=== PATIENT | female | born 1990 | race Hispanic/Latino ===

== ENCOUNTER 2018-07-05 18:55 | Emergency (ER) | payer BC, OTHER ==
[2018-07-05 19:39] VITALS: BMI 38.0
[2018-07-05 20:03] LABS: BASO % 0.6 % (0.0-2.0); EOS # 0.1 K/uL (0.0-0.7); EOS % 1.3 % (0.0-4.0); HEMOGLOBIN 11.4 g/dL (12.0-16.0); LYMPH # 1.9 K/uL (1.0-4.3); LYMPH % 22.3 % (20.0-40.0); MEAN CELL VOLUME 84.1 fl (81.0-99.0); MEAN CORPUSCULAR HEMOGLOBIN 28.2 pg (27.0-31.0); MEAN CORPUSCULAR HGB CONC 33.5 g/dL (33.0-37.0); MEAN PLATELET VOLUME 9.4 fl (7.2-11.7); MONO # 0.5 K/uL (0.0-0.8); MONO % 5.9 % (0.0-10.0); NEUT # 5.8 K/uL (1.8-7.0); NEUT % 69.9 % (50.0-75.0); RBC 4.03 Mil/uL (3.80-5.20); RED CELL DISTRIBUTION WIDTH 13.4 % (11.5-14.5); WHITE BLOOD COUNT 8.3 K/uL (4.8-10.8)
[2018-07-05 20:15] LABS: ALB/GLOB RATIO 0.9 (1.0-2.1); ALT/SGPT 18 U/L (9-52); AST/SGOT 28 U/L (14-36); BLOOD UREA NITROGEN 15 mg/dl (7-17); CALCIUM 9.2 mg/dL (8.4-10.2); GFR NON-AFRICAN AMERICAN > 60; URIC ACID 6.4 mg/Dl (2.2-7.5)
[2018-07-05 20:25] LABS: SQUAMOUS EPITHIAL 3 /hpf (0-5); URINE BACTERIA RARE (<OCC); URINE BILIRUBIN NEGATIVE (NEGATIVE); URINE BLOOD NEGATIVE (NEGATIVE); URINE CLARITY CLEAR (Clear); URINE COLOR STRAW (YELLOW); URINE GLUCOSE (UA) NEG (NEGATIVE); URINE LEUKOCYTE ESTERASE NEG Leu/uL (Negative); URINE PROTEIN NEGATIVE (NEGATIVE); URINE UROBILINOGEN 0.2-1.0 mg/dL (0.2-1.0)
[2018-07-06 03:55] VITALS: BP 149/83; PULSE 84
== END 2018-07-05 21:55 | disposition home or self-care (01) ==
LOC: H.EROB2 18:55
DX: O13.3 Gestational [pregnancy-induced] hypertension without significant proteinuria, third trimester (principal); Z3A.33 33 weeks gestation of pregnancy

== ENCOUNTER 2018-07-06 22:15 | Emergency (ER) | payer OTHER ==
[2018-07-06 22:36] VITALS: BMI 39.3
[2018-07-06 23:17] LABS: URINE CREATININE 52.9 mg/dL
[2018-07-06 23:19] LABS: URINE 24 HOUR TOTAL PROTEIN 480.3 mg/24hr (42-225)
[2018-07-07 05:33] VITALS: BP 132/66; PULSE 80; RESP 18; TEMP 97.9; O2SAT 99
--- NOTE | 2018-07-07 08:48 | OBHP ---
Datetime: 07/07/2018 00:16 IP Adm Impression: , intrauterine IP Admit Plan: Observation/Evaluation; Discharge home Admit Comment, IP Provider: 27 y/o , 34.0 wks based on LMP with EDC of presents to [facility] for evaluation of preeclampsia and 24 hr urine. Paitent had preeclampsia workup done which was unre markable. Patient's BP has been ranging from 130/80s to 150/90s. Patient reports bilateral pedal zechariah a and dryness of mouth. Denies headache, visual changes, abdominal pain, LOF, VB. Reports good movements. care: Dr. William PMHx: Denies PSHx: Denies Allergies: NKDA Social Hx: Denies drugs/alcohol/smoking F/H: Denies BP elevated, VSS otherwise PE: Gen: NAD Chest: RRR, S1S2 present Lungs: CTAB Abdomen: Gravid, NT, soft Ex: + 1 B/L pedal edema Neuro: AAO x 3, CN 2-12 grossly intact A/P: 27 y/o , 33.6 wks based on LMP with EDC of 08/17/18 for evaluation of High BP and preec lampsia - Preeclampsia labs on 07/05 unremarkable including CBC, CMP, UA, LDH, Uric acid - 24 hr urine protein 480. - NST reactive, Category I tracing. - PTL and ER precautions given. Patient verbalized understanding. Patient to F/U with Dr William for follow up on 07/10/[address] William. Mian Bueno, PGY1 Pelvic Type - PN: Not Done Extremities - PN: Normal Abdomen - PN: Normal Back - PN: Normal Breast - PN: Not Done Lungs - PN: Normal Heart - PN: Normal Thyroid - PN: Normal Neurologic - PN: Normal HEENT - PN: Normal General - PN: Normal FHR - Baseline A Provider: [id number] Contraction Comments Provider: None EGA AdmitDate IP: 34.0 IP Chief Complaint: Signs/Symptoms Gestational HTN NICHD Variability Prov Fetus A: Moderate 6-25bpm NICHD Accel Fetus A IP Provider: [id number] FHR Category Provider Fetus A: Category I NICHD Decel Fetus A IP Provider: None Genitourinary Exam: Not Done DTRs - PN: Not Done Datetime: 07/05/2018 19:49 Membranes, Provider: Intact
== END 2018-07-06 23:55 | disposition home or self-care (01) ==
LOC: H.EROB2 22:15
DX: O26.93 Pregnancy related conditions, unspecified, third trimester (principal); I10 Essential (primary) hypertension; M79.89 Other specified soft tissue disorders; R68.2 Dry mouth, unspecified; Z3A.33 33 weeks gestation of pregnancy